=== PATIENT | male | born 1960 | race Caucasian/White ===

== ENCOUNTER → 2016-12-14 | Outpatient (CLI) | payer MEDICARE, OTHER | LOC: KOH-I 12-12 10:30 | DX: R51 Headache (principal); R42 Dizziness and giddiness; H53.8 Other visual disturbances; G93.89 Other specified disorders of brain | CPT/HCPCS: 70470; Q9962 ==

== ENCOUNTER 2020-11-11 05:19 | Observation (INO) | payer MEDICARE, OTHER ==
[~2020-11-11] VITALS: Ht 157.5 cm; Wt 54.0 kg
[~2020-11-11 05:19] MED LIST: ASPIRIN CHEWABL81 MG PO; COZAAR 25MG TAB25 MG PO; ECOTRIN81 MG PO; ELAVIL 25 MG TA25 MG PO; FUROSEMIDE20 MG PO; FUROSEMIDE40 MG PO; IPRAT-ALBUT 0.5-3 ML INH; IPRAT-ALBUT 0.5-3 ML NEB; LASIX20 MG PO; LIPITOR TAB 2020 MG PO; LIPITOR20 MG PO; LOPRESSOR 25 MG25 MG PO; METHYLPREDNISOLO4 M1 PO; PREDNISONE 50 M50 MG PO; PREDNISONE20 MG PO; TOPROL XL25 MG PO; ZITHROMAX250 MG PO
[2020-11-11 06:16] LABS: HEMOGLOBIN 16.1 gm/dl (14.0-17.5); RED BLOOD COUNT 5.31 M/UL (4.20-5.50); WHITE BLOOD COUNT 13.1 K/UL (4.5-11.0)
[2020-11-11 06:32] LABS: BUN/CREATININE RATIO 25 (0-10)
[2020-11-11] MEDS ORDERED: LISINOPRIL5 MG PO (09:51)
[2020-11-11] MEDS ORDERED: LIPITOR40 MG PO (09:51)
[2020-11-11] MEDS ORDERED: ASPIRIN EC81 MG PO (09:52)
[2020-11-11] MEDS ORDERED: LOPRESSOR 25 MG25 MG PO (09:52)
[2020-11-12 06:39] LABS: HEMOGLOBIN 14.9 gm/dl (14.0-17.5); RED BLOOD COUNT 4.97 M/UL (4.20-5.50); WHITE BLOOD COUNT 16.8 K/UL (4.5-11.0)
[2020-11-12 07:00] LABS: BUN/CREATININE RATIO 26 (0-10)
[2020-11-13 06:39] LABS: HEMOGLOBIN 16.6 gm/dl (14.0-17.5); RED BLOOD COUNT 5.46 M/UL (4.20-5.50); WHITE BLOOD COUNT 17.5 K/UL (4.5-11.0)
[2020-11-13 07:18] LABS: BUN/CREATININE RATIO 30 (0-10)
[2020-11-13] MEDS ORDERED: ASPIRIN EC81 MG PO (09:47)
[2020-11-13] MEDS ORDERED: LIPITOR40 MG PO (09:47)
[2020-11-13] MEDS ORDERED: LASIX20 MG PO (09:47)
[2020-11-13] MEDS ORDERED: LOPRESSOR 25 MG25 MG PO (09:47)
[2020-11-13] MEDS ORDERED: ALDACTONE 25MG25 MG PO (09:47)
[2020-11-13] MEDS ORDERED: LISINOPRIL5 MG PO (09:47)
== END 2020-11-13 12:30 | disposition home or self-care (01) ==
LOC: ER1 05:19 → MED SURG 4 08:46 → CDU 08:46 → MED SURG 4 08:46
PROVIDERS: Family Medicine; Physician Assistant Medical; ADMIT Internal Medicine
DX: I11.0 Hypertensive heart disease with heart failure (principal); I50.23 Acute on chronic systolic (congestive) heart failure; J96.01 Acute respiratory failure with hypoxia; I42.0 Dilated cardiomyopathy; I25.10 Atherosclerotic heart disease of native coronary artery without angina pectoris; J44.1 Chronic obstructive pulmonary disease with (acute) exacerbation; E78.5 Hyperlipidemia, unspecified; R00.0 Tachycardia, unspecified; D72.829 Elevated white blood cell count, unspecified; F17.210 Nicotine dependence, cigarettes, uncomplicated; I27.20 Pulmonary hypertension, unspecified; I25.2 Old myocardial infarction; Z86.73 Personal history of transient ischemic attack (TIA), and cerebral infarction without residual deficits; Z91.14 Patient's other noncompliance with medication regimen; Z91.19 Patient's noncompliance with other medical treatment and regimen; Z20.822 Contact with and (suspected) exposure to COVID-19; Z98.890 Other specified postprocedural states
CPT/HCPCS: ECHO; 0240U; 36415; 36600; 71045; 80048; 80053; 81001; 82550; 82553; 82803; 82962; 83605; 83735; 83874; 83880; 84100; 84439; 84443; 84484; 85025; 85027; 87040; 93005; 93306; 94640; 94664; 94760; 96365; 96372; 96375; 96376; 99285; G0378; J0696; J1650; J1940; J2930

== ENCOUNTER 2021-03-03 02:14 | Inpatient (IN) | payer MEDICARE, OTHER ==
[~2021-03-03] VITALS: Ht 160 cm; Wt 63.5 kg
[~2021-03-03 02:14] MED LIST changes: +ALDACTONE 25MG25 MG PO; +ASPIRIN EC81 MG PO; +LIPITOR40 MG PO; +LISINOPRIL5 MG PO
[2021-03-03 02:43] LABS: HEMOGLOBIN 15.5 gm/dl (14.0-17.5); RED BLOOD COUNT 5.02 M/UL (4.20-5.50); WHITE BLOOD COUNT 15.4 K/UL (4.5-11.0)
[2021-03-03 03:17] LABS: BUN/CREATININE RATIO 19 (0-10)
[2021-03-03] MEDS ORDERED: ATORVASTATIN CA40 MG PO (07:30)
[2021-03-03] MEDS ORDERED: FUROSEMIDE40 MG PO (07:31)
[2021-03-03] MEDS ORDERED: HYDROXYZINE HCL10 MG PO (07:31)
[2021-03-03] MEDS ORDERED: LISINOPRIL2.5 MG PO (07:32)
[2021-03-04 02:51] LABS: HEMOGLOBIN 14.3 gm/dl (14.0-17.5); RED BLOOD COUNT 4.67 M/UL (4.20-5.50)
[2021-03-04 02:54] LABS: WHITE BLOOD COUNT 26.1 K/UL (4.5-11.0)
[2021-03-04 03:16] LABS: BUN/CREATININE RATIO 20 (0-10)
[2021-03-05 05:26] LABS: HEMOGLOBIN 14.9 gm/dl (14.0-17.5); RED BLOOD COUNT 4.78 M/UL (4.20-5.50); WHITE BLOOD COUNT 24.8 K/UL (4.5-11.0)
[2021-03-05 05:55] LABS: BUN/CREATININE RATIO 28 (0-10)
--- NOTE | 2021-03-05 07:00 | NUR ---
PATIENT REFUSED VANCOMYCIN AND MERREM. PATIENT WAS EDUCATED ON BENEFITS AND RISKS OF HAVING ANTIBIOTIC THERAPY. PATIENT HAD STILL REFUSED TREATMENT.
[2021-03-05] MEDS ORDERED: LEVALBUTER1.25 MG/3 NEB (11:03)
[2021-03-05] MEDS ORDERED: BUDESONIDE0.5 MG/2 M NEB (11:03)
[2021-03-05] MEDS ORDERED: METOPROLOL SUCC25 MG PO (11:03)
[2021-03-05] MEDS ORDERED: LISINOPRIL5 MG PO (11:03)
[2021-03-05] MEDS ORDERED: MEDROL DOSEPAK 24 MG PO (11:03)
[2021-03-05] MEDS ORDERED: AUGMENTIN 875-1 EACH PO (11:03)
[2021-03-05] MEDS ORDERED: ATORVASTATIN CA20 MG PO (11:03)
[2021-03-05] MEDS ORDERED: FUROSEMIDE40 MG PO (11:03)
[2021-03-05] MEDS ORDERED: ALDACTONE25 MG PO (11:03)
[2021-03-05] MEDS ORDERED: PROTONIX40 MG PO (11:03)
[2021-03-05] MEDS ORDERED: SPIRIVA18 MCG INH (11:06)
[2021-03-05] MEDS ORDERED: SEREVENT DISKU50 MCG INH (11:06)
[2021-03-05] MEDS ORDERED: IPRATROPIU0.2 MG/1 M INH (11:06)
[2021-03-05 13:13] LABS: ORGANISM ID Not indicated. (.); SPECIMEN SOURCE Urine (.); STREPTOCOCCUS PNEUMONIAE AG Negative (Negative)
== END 2021-03-05 12:36 | disposition left against medical advice (07) | DRG 871 ==
LOC: ER1 02:14 → CDU 04:06 → PROG CARE 04:06
PROVIDERS: Internal Medicine; Internal Medicine Pulmonary Disease; ADMIT Internal Medicine
PROC: 5A09457 Assistance with Respiratory Ventilation, 24-96 Consecutive Hours, Continuous Positive Airway Pressure (ICD-10-PCS; principal; 2021-03-03)
DX: A41.9 Sepsis, unspecified organism (principal); J96.01 Acute respiratory failure with hypoxia; J96.02 Acute respiratory failure with hypercapnia; E43 Unspecified severe protein-calorie malnutrition; J18.9 Pneumonia, unspecified organism; I50.23 Acute on chronic systolic (congestive) heart failure; J44.1 Chronic obstructive pulmonary disease with (acute) exacerbation; I42.8 Other cardiomyopathies; J44.0 Chronic obstructive pulmonary disease with (acute) lower respiratory infection; I47.2 Ventricular tachycardia; I11.0 Hypertensive heart disease with heart failure; E78.5 Hyperlipidemia, unspecified; Z20.822 Contact with and (suspected) exposure to COVID-19; Z95.810 Presence of automatic (implantable) cardiac defibrillator; Z72.0 Tobacco use; Z91.14 Patient's other noncompliance with medication regimen; Z68.24 Body mass index [BMI] 24.0-24.9, adult
CPT/HCPCS: 36415; 36600; 71045; 80053; 80202; 82550; 82553; 82803; 83605; 83735; 83880; 84100; 84484; 85025; 85610; 86140; 87040; 87081; 87205; 87278; 87899; 93005; 94640; 94660; 94664; 94667; 94668; 94760; 96374; 96375; 97161; 99285; C9113; J0696; J1650; J1940; J2185; J2920; J3370; J7070; J7120; U0002

== ENCOUNTER 2021-05-05 05:14 | Inpatient (IN) | payer MEDICARE, OTHER ==
[~2021-05-05 05:14] MED LIST changes: +ALDACTONE25 MG PO; +ATORVASTATIN CA20 MG PO; +ATORVASTATIN CA40 MG PO; +AUGMENTIN 875-1 EACH PO; +BUDESONIDE0.5 MG/2 M NEB; +HYDROXYZINE HCL10 MG PO; +IPRATROPIU0.2 MG/1 M INH; +LEVALBUTER1.25 MG/3 NEB; +LISINOPRIL2.5 MG PO; +MEDROL DOSEPAK 24 MG PO; +METOPROLOL SUCC25 MG PO; +PROTONIX40 MG PO; +SEREVENT DISKU50 MCG INH; +SPIRIVA18 MCG INH
[2021-05-05 06:04] LABS: HEMOGLOBIN 16.5 gm/dl (14.0-17.5)
[2021-05-05 06:09] LABS: RED BLOOD COUNT 5.11 M/UL (4.20-5.50)
[2021-05-05 06:24] LABS: BUN/CREATININE RATIO 22 (0-10)
== END 2021-05-05 16:38 | disposition left against medical advice (07) | DRG 291 ==
LOC: ER1 05:14 → CDU 09:32
PROVIDERS: Family Medicine; ADMIT Internal Medicine
DX: I50.23 Acute on chronic systolic (congestive) heart failure (principal); J18.9 Pneumonia, unspecified organism; I42.8 Other cardiomyopathies; Z20.822 Contact with and (suspected) exposure to COVID-19; I42.0 Dilated cardiomyopathy; G45.9 Transient cerebral ischemic attack, unspecified; I47.1 Supraventricular tachycardia; E78.5 Hyperlipidemia, unspecified; F17.210 Nicotine dependence, cigarettes, uncomplicated; I08.1 Rheumatic disorders of both mitral and tricuspid valves; I27.20 Pulmonary hypertension, unspecified; Z91.14 Patient's other noncompliance with medication regimen; Z86.73 Personal history of transient ischemic attack (TIA), and cerebral infarction without residual deficits; Z83.6 Family history of other diseases of the respiratory system
CPT/HCPCS: 36600; 71045; 80053; 82550; 82553; 82803; 83605; 83880; 84484; 85025; 85379; 85610; 87040; 93005; 94664; 96374; 99285; J0692; J1940; U0002

== ENCOUNTER 2021-07-02 01:51 | Inpatient (IN) | payer MEDICARE, OTHER ==
[~2021-07-02] VITALS: Ht 157.5 cm; Wt 56.7 kg
[2021-07-02 02:21] LABS: HEMOGLOBIN 15.7 gm/dl (14.0-17.5); RED BLOOD COUNT 5.16 M/UL (4.20-5.50); WHITE BLOOD COUNT 12.9 K/UL (4.5-11.0)
[2021-07-02 02:48] LABS: BUN/CREATININE RATIO 21 (0-10)
[2021-07-02] MEDS ORDERED: HYDROXYZINE HCL25 MG PO (06:10)
[2021-07-03 06:48] LABS: HEMOGLOBIN 15.3 gm/dl (14.0-17.5); RED BLOOD COUNT 5.03 M/UL (4.20-5.50)
[2021-07-03 06:54] LABS: WHITE BLOOD COUNT 24.4 K/UL (4.5-11.0)
[2021-07-03 07:43] LABS: BUN/CREATININE RATIO 29 (0-10)
[2021-07-04 09:25] LABS: HEMOGLOBIN 15.1 gm/dl (14.0-17.5); RED BLOOD COUNT 4.95 M/UL (4.20-5.50); WHITE BLOOD COUNT 25.3 K/UL (4.5-11.0)
[2021-07-04 10:02] LABS: BUN/CREATININE RATIO 29 (0-10)
[2021-07-04] MEDS ORDERED: LISINOPRIL5 MG PO (16:11)
[2021-07-04] MEDS ORDERED: ASPIRIN EC81 MG PO (16:11)
[2021-07-04] MEDS ORDERED: PROTONIX 40 MG40 M1 PO (16:11)
[2021-07-04] MEDS ORDERED: ATORVASTATIN CA20 MG PO (16:11)
[2021-07-04] MEDS ORDERED: CEFUROXIME500 MG PO (16:11)
[2021-07-04] MEDS ORDERED: METOPROLOL TART25 MG PO (16:16)
== END 2021-07-04 17:16 | disposition home or self-care (01) | DRG 291 ==
LOC: ER1 01:51 → CDU 05:12 → M/S 05:12
PROVIDERS: Internal Medicine; Physician Assistant; ADMIT Internal Medicine
DX: I11.0 Hypertensive heart disease with heart failure (principal); I50.23 Acute on chronic systolic (congestive) heart failure; J96.21 Acute and chronic respiratory failure with hypoxia; Z20.822 Contact with and (suspected) exposure to COVID-19; J44.9 Chronic obstructive pulmonary disease, unspecified; I42.0 Dilated cardiomyopathy; I25.10 Atherosclerotic heart disease of native coronary artery without angina pectoris; I34.0 Nonrheumatic mitral (valve) insufficiency; F17.210 Nicotine dependence, cigarettes, uncomplicated; I27.20 Pulmonary hypertension, unspecified; E78.5 Hyperlipidemia, unspecified; Z91.14 Patient's other noncompliance with medication regimen; Z79.82 Long term (current) use of aspirin; Z79.899 Other long term (current) drug therapy; Z86.73 Personal history of transient ischemic attack (TIA), and cerebral infarction without residual deficits; Z83.6 Family history of other diseases of the respiratory system; I25.2 Old myocardial infarction; Z82.49 Family history of ischemic heart disease and other diseases of the circulatory system
CPT/HCPCS: ECHO; 36415; 71045; 71275; 80053; 82550; 82553; 83605; 83874; 83880; 84484; 85025; 85379; 85610; 85730; 87040; 93005; 93306; 94640; 94664; 94760; 96374; 99285; G0378; J0456; J0696; J1650; J1940; J2920; J2930; J7030; Q0177; Q9967; U0002

== ENCOUNTER 2021-07-07 16:15 | Observation (INO) | payer MEDICARE, OTHER ==
[~2021-07-07] VITALS: Ht 157.5 cm; Wt 51.3 kg
[~2021-07-07 16:15] MED LIST changes: +CEFUROXIME500 MG PO; +HYDROXYZINE HCL25 MG PO; +METOPROLOL TART25 MG PO; +PROTONIX 40 MG40 M1 PO
[2021-07-07 17:34] LABS: HEMOGLOBIN 16.1 gm/dl (14.0-17.5); RED BLOOD COUNT 5.55 M/UL (4.20-5.50)
[2021-07-07 17:58] LABS: BUN/CREATININE RATIO 27 (0-10)
[2021-07-07] MEDS ORDERED: LOPRESSOR 25 MG25 MG PO (21:57)
[2021-07-08 05:02] LABS: HEMOGLOBIN 15.3 gm/dl (14.0-17.5); RED BLOOD COUNT 5.27 M/UL (4.20-5.50); WHITE BLOOD COUNT 14.7 K/UL (4.5-11.0)
[2021-07-08 05:15] LABS: BUN/CREATININE RATIO 26 (0-10)
== END 2021-07-09 15:08 | disposition home or self-care (01) ==
LOC: ER1 16:15 → CDU 20:20 → PROG CARE 20:20
PROVIDERS: Nurse Practitioner; ADMIT Internal Medicine
DX: I11.0 Hypertensive heart disease with heart failure (principal); I50.22 Chronic systolic (congestive) heart failure; I42.8 Other cardiomyopathies; I95.9 Hypotension, unspecified; I34.0 Nonrheumatic mitral (valve) insufficiency; I27.20 Pulmonary hypertension, unspecified; F17.210 Nicotine dependence, cigarettes, uncomplicated; I47.1 Supraventricular tachycardia; E44.0 Moderate protein-calorie malnutrition; Z68.20 Body mass index [BMI] 20.0-20.9, adult; Z20.822 Contact with and (suspected) exposure to COVID-19; Z86.73 Personal history of transient ischemic attack (TIA), and cerebral infarction without residual deficits; Z91.19 Patient's noncompliance with other medical treatment and regimen; Z53.29 Procedure and treatment not carried out because of patient's decision for other reasons; Z88.1 Allergy status to other antibiotic agents; Z79.2 Long term (current) use of antibiotics; Z79.82 Long term (current) use of aspirin; Z79.899 Other long term (current) drug therapy
CPT/HCPCS: 36415; 71045; 80053; 80307; 81001; 82550; 82553; 82607; 82728; 83605; 83874; 83880; 84100; 84439; 84443; 84484; 84550; 85025; 85652; 86140; 87040; 93005; 94640; 94664; 94760; 99285; G0378; J1650; U0002

== ENCOUNTER 2021-07-17 09:00 | Inpatient (IN) | payer MEDICARE, OTHER ==
[~2021-07-17] VITALS: Ht 154.9 cm; Wt 54.4 kg
[2021-07-17 09:26] LABS: HEMOGLOBIN 15.5 gm/dl (14.0-17.5); RED BLOOD COUNT 5.11 M/UL (4.20-5.50); WHITE BLOOD COUNT 18.2 K/UL (4.5-11.0)
[2021-07-17 09:56] LABS: BUN/CREATININE RATIO 20 (0-10)
[2021-07-17] MEDS ORDERED: BUDESONIDE0.5 MG/2 M NEB (15:40)
[2021-07-17] MEDS ORDERED: TYLENOL EXTRA500 MG PO (15:41)
[2021-07-17] MEDS ORDERED: DAILY VALUE1 EACH PO (15:41)
[2021-07-18 03:00] LABS: WHITE BLOOD COUNT 18.3 K/UL (4.5-11.0)
[2021-07-18 03:01] LABS: HEMOGLOBIN 13.2 gm/dl (14.0-17.5); RED BLOOD COUNT 4.39 M/UL (4.20-5.50)
[2021-07-18 03:16] LABS: BUN/CREATININE RATIO 23 (0-10)
[2021-07-19 06:23] LABS: HEMOGLOBIN 13.7 gm/dl (14.0-17.5); RED BLOOD COUNT 4.57 M/UL (4.20-5.50); WHITE BLOOD COUNT 19.3 K/UL (4.5-11.0)
[2021-07-19 07:07] LABS: BUN/CREATININE RATIO 27 (0-10)
[2021-07-20 05:58] LABS: HEMOGLOBIN 12.7 gm/dl (14.0-17.5); RED BLOOD COUNT 4.28 M/UL (4.20-5.50); WHITE BLOOD COUNT 15.4 K/UL (4.5-11.0)
[2021-07-20 06:40] LABS: BUN/CREATININE RATIO 22 (0-10)
[2021-07-21 05:42] LABS: HEMOGLOBIN 13.5 gm/dl (14.0-17.5); RED BLOOD COUNT 4.47 M/UL (4.20-5.50); WHITE BLOOD COUNT 13.8 K/UL (4.5-11.0)
[2021-07-21 06:32] LABS: BUN/CREATININE RATIO 21 (0-10)
[2021-07-22 07:05] LABS: HEMOGLOBIN 12.7 gm/dl (14.0-17.5); RED BLOOD COUNT 4.21 M/UL (4.20-5.50); WHITE BLOOD COUNT 12.8 K/UL (4.5-11.0)
[2021-07-22 07:28] LABS: BUN/CREATININE RATIO 25 (0-10)
[2021-07-22] MEDS ORDERED: NICOTINE PATCH1 EAC1 TD (12:48)
[2021-07-22] MEDS ORDERED: AUGMENTIN 875-1 EACH PO (12:48)
[2021-07-22] MEDS ORDERED: LOPRESSOR 25 MG25 MG PO (12:48)
[2021-07-22] MEDS ORDERED: LIBRIUM CAP 1010 MG PO (12:48)
[2021-07-22] MEDS ORDERED: DOXYCYCLINE HY100 MG PO (12:48)
[2021-07-23] MEDS ORDERED: METOPROLOL TART25 MG PO (10:17)
[2021-07-23] MEDS ORDERED: LISINOPRIL5 MG PO (10:19)
[2021-07-23] MEDS ORDERED: ALBUTEROL2.5 MG/3 M NEB (10:20)
== END 2021-07-22 13:55 | disposition left against medical advice (07) | DRG 871 ==
LOC: ER1 09:00 → CDU 13:49 → MED SURG 4 13:49
PROVIDERS: Emergency Medicine; Internal Medicine; Physician Assistant; ADMIT Internal Medicine
PROC: 5A09457 Assistance with Respiratory Ventilation, 24-96 Consecutive Hours, Continuous Positive Airway Pressure (ICD-10-PCS; principal; 2021-07-22)
DX: A41.9 Sepsis, unspecified organism (principal); J15.6 Pneumonia due to other Gram-negative bacteria; J15.8 Pneumonia due to other specified bacteria; J96.01 Acute respiratory failure with hypoxia; I50.22 Chronic systolic (congestive) heart failure; I42.0 Dilated cardiomyopathy; Z20.822 Contact with and (suspected) exposure to COVID-19; F17.210 Nicotine dependence, cigarettes, uncomplicated; E78.5 Hyperlipidemia, unspecified; R65.20 Severe sepsis without septic shock; Y95 Nosocomial condition; I11.0 Hypertensive heart disease with heart failure; R74.01 Elevation of levels of liver transaminase levels; J43.9 Emphysema, unspecified; I25.5 Ischemic cardiomyopathy; K40.90 Unilateral inguinal hernia, without obstruction or gangrene, not specified as recurrent; Z95.810 Presence of automatic (implantable) cardiac defibrillator; Z86.73 Personal history of transient ischemic attack (TIA), and cerebral infarction without residual deficits; Z91.14 Patient's other noncompliance with medication regimen; Z88.8 Allergy status to other drugs, medicaments and biological substances; Z79.82 Long term (current) use of aspirin; Z79.899 Other long term (current) drug therapy; Z83.6 Family history of other diseases of the respiratory system
CPT/HCPCS: 36415; 36600; 71045; 71046; 80048; 80053; 80202; 82550; 82553; 82803; 83735; 83874; 83880; 84484; 85025; 85027; 87081; 87205; 93005; 94640; 94660; 94664; 94760; 96374; 96375; 99285; J0692; J1100; J1956; J3370; J7050; J7070; Q9967; U0002

== ENCOUNTER 2021-07-17 10:13 | Inpatient (IN) | payer MEDICARE, OTHER ==
[~2021-07-17] VITALS: Ht 154.9 cm; Wt 54.0 kg
[2021-07-17] MEDS ORDERED: BUDESONIDE0.5 MG/2 M NEB (15:40)
[2021-07-17] MEDS ORDERED: TYLENOL EXTRA500 MG PO (15:41)
[2021-07-17] MEDS ORDERED: DAILY VALUE1 EACH PO (15:41)
[2021-07-22] MEDS ORDERED: AUGMENTIN 875-1 EACH PO (12:48)
[2021-07-22] MEDS ORDERED: NICOTINE PATCH1 EAC1 TD (12:48)
[2021-07-22] MEDS ORDERED: LOPRESSOR 25 MG25 MG PO (12:48)
[2021-07-22] MEDS ORDERED: LIBRIUM CAP 1010 MG PO (12:48)
[2021-07-22] MEDS ORDERED: DOXYCYCLINE HY100 MG PO (12:48)
[2021-07-22 20:43] LABS: HEMOGLOBIN 14.5 gm/dl (14.0-17.5); WHITE BLOOD COUNT 15.2 K/UL (4.5-11.0)
[2021-07-22 20:45] LABS: RED BLOOD COUNT 4.71 M/UL (4.20-5.50)
[2021-07-22 21:24] LABS: BUN/CREATININE RATIO 23 (0-10)
[2021-07-23 04:53] LABS: HEMOGLOBIN 13.5 gm/dl (14.0-17.5); RED BLOOD COUNT 4.49 M/UL (4.20-5.50); WHITE BLOOD COUNT 13.2 K/UL (4.5-11.0)
[2021-07-23 05:53] LABS: BUN/CREATININE RATIO 26 (0-10)
[2021-07-23] MEDS ORDERED: METOPROLOL TART25 MG PO (10:17)
[2021-07-23] MEDS ORDERED: LISINOPRIL5 MG PO (10:19)
[2021-07-23] MEDS ORDERED: ALBUTEROL2.5 MG/3 M NEB (10:20)
[2021-07-24 06:54] LABS: HEMOGLOBIN 12.2 gm/dl (14.0-17.5); RED BLOOD COUNT 4.09 M/UL (4.20-5.50)
[2021-07-24 07:19] LABS: WHITE BLOOD COUNT 19.6 K/UL (4.5-11.0)
[2021-07-24 07:50] LABS: BUN/CREATININE RATIO 26 (0-10)
[2021-07-25 06:29] LABS: HEMOGLOBIN 12.7 gm/dl (14.0-17.5); RED BLOOD COUNT 4.17 M/UL (4.20-5.50); WHITE BLOOD COUNT 21.1 K/UL (4.5-11.0)
[2021-07-25 07:10] LABS: BUN/CREATININE RATIO 27 (0-10)
[2021-07-26 07:55] LABS: RED BLOOD COUNT 4.12 M/UL (4.20-5.50)
[2021-07-26 08:51] LABS: BUN/CREATININE RATIO 22 (0-10)
[2021-07-26] MEDS ORDERED: LISINOPRIL5 MG PO (10:07)
[2021-07-26] MEDS ORDERED: LOPRESSOR 25 MG25 MG PO (10:07)
[2021-07-26] MEDS ORDERED: SYMBICORT 16010.2 GM INH (10:07)
[2021-07-26] MEDS ORDERED: SPIRIVA HANDIH18 MCG INH (10:07)
[2021-07-26] MEDS ORDERED: MEDROL DOSEPAK 24 MG PO (10:07)
--- NOTE | 2021-07-26 12:53 | NUR ---
REPORT CALLED TO KELLI AT [facility].
== END 2021-07-26 12:53 | disposition home or self-care (01) | DRG 871 ==
LOC: ER1 10:13 → CDU 10:14 → ER1 07-22 18:12 → CDU 07-22 23:20 → MED SURG 4 07-22 23:20 → ER1 07-23 16:39 → MED SURG 4 07-23 17:20 → CDU 07-23 17:20 → MED SURG 4 07-26 12:53 → CDU 07-26 12:53
PROVIDERS: Internal Medicine; Preventive Medicine Occupational Medicine; ADMIT Internal Medicine
DX: A41.02 Sepsis due to Methicillin resistant Staphylococcus aureus (principal); J15.212 Pneumonia due to Methicillin resistant Staphylococcus aureus; J96.21 Acute and chronic respiratory failure with hypoxia; J18.9 Pneumonia, unspecified organism; I50.22 Chronic systolic (congestive) heart failure; I42.0 Dilated cardiomyopathy; Z20.822 Contact with and (suspected) exposure to COVID-19; I11.0 Hypertensive heart disease with heart failure; J43.9 Emphysema, unspecified; K40.90 Unilateral inguinal hernia, without obstruction or gangrene, not specified as recurrent; T38.0X5A Adverse effect of glucocorticoids and synthetic analogues, initial encounter; F41.9 Anxiety disorder, unspecified; F17.210 Nicotine dependence, cigarettes, uncomplicated; E78.5 Hyperlipidemia, unspecified; Z98.890 Other specified postprocedural states; Z83.6 Family history of other diseases of the respiratory system; Z91.14 Patient's other noncompliance with medication regimen; Z95.810 Presence of automatic (implantable) cardiac defibrillator; Z79.82 Long term (current) use of aspirin; Z86.73 Personal history of transient ischemic attack (TIA), and cerebral infarction without residual deficits; Z80.1 Family history of malignant neoplasm of trachea, bronchus and lung; Z88.1 Allergy status to other antibiotic agents; I25.2 Old myocardial infarction; Z99.81 Dependence on supplemental oxygen
CPT/HCPCS: 36415; 36600; 71045; 71046; 80048; 80053; 80202; 80307; 82550; 82553; 82803; 83735; 83874; 83880; 84484; 85025; 85027; 85652; 86140; 87081; 87205; 93005; 94640; 94660; 94664; 94760; 96374; 96375; 99285; J0692; J1100; J1650; J1956; J2405; J2920; J2930; J3370; J7030; J7050; J7070; Q0177; Q9967; U0002

== ENCOUNTER 2021-07-31 20:51 | Observation (INO) | payer MEDICARE, OTHER ==
[~2021-07-31] VITALS: Ht 154.9 cm; Wt 55.3 kg
[~2021-07-31 20:51] MED LIST changes: +ALBUTEROL2.5 MG/3 M NEB; +DAILY VALUE1 EACH PO; +DOXYCYCLINE HY100 MG PO; +LIBRIUM CAP 1010 MG PO; +NICOTINE PATCH1 EAC1 TD; +SPIRIVA HANDIH18 MCG INH; +SYMBICORT 16010.2 GM INH; +TYLENOL EXTRA500 MG PO
[2021-07-31 21:52] LABS: RED BLOOD COUNT 5.12 M/UL (4.20-5.50); WHITE BLOOD COUNT 24.9 K/UL (4.5-11.0)
[2021-07-31 22:06] LABS: BUN/CREATININE RATIO 19 (0-10)
[2021-07-31 22:24] LABS: HEMOGLOBIN 14.9 gm/dl (14.0-17.5)
[2021-08-01 06:25] LABS: HEMOGLOBIN 15.4 gm/dl (14.0-17.5); RED BLOOD COUNT 5.24 M/UL (4.20-5.50); WHITE BLOOD COUNT 26.3 K/UL (4.5-11.0)
[2021-08-01 06:49] LABS: BUN/CREATININE RATIO 22 (0-10)
== END 2021-08-01 15:12 | disposition home or self-care (01) ==
LOC: ER1 20:51 → M/S 22:52 → CDU 22:52 → M/S 08-01 01:43
PROVIDERS: Emergency Medicine; ADMIT Internal Medicine
DX: I25.119 Atherosclerotic heart disease of native coronary artery with unspecified angina pectoris (principal); I42.0 Dilated cardiomyopathy; J44.1 Chronic obstructive pulmonary disease with (acute) exacerbation; I27.20 Pulmonary hypertension, unspecified; I34.0 Nonrheumatic mitral (valve) insufficiency; I47.2 Ventricular tachycardia; E87.5 Hyperkalemia; I11.0 Hypertensive heart disease with heart failure; I50.23 Acute on chronic systolic (congestive) heart failure; I25.2 Old myocardial infarction; Z79.82 Long term (current) use of aspirin; F17.210 Nicotine dependence, cigarettes, uncomplicated; J96.11 Chronic respiratory failure with hypoxia; Z91.14 Patient's other noncompliance with medication regimen; R53.81 Other malaise; Z20.822 Contact with and (suspected) exposure to COVID-19; R00.0 Tachycardia, unspecified
CPT/HCPCS: 36415; 71045; 80048; 80053; 82550; 82553; 83690; 83735; 83874; 83880; 84100; 84484; 85025; 85379; 85610; 85730; 93005; 94640; 94664; G0378; J1940; U0002

== ENCOUNTER → 2021-08-10 | Outpatient (CLI) | payer MEDICARE, OTHER ==
[~2021-08-10] MED LIST changes: +ADVAIR 100-501 EACH INH; +INCRUSE ELLI62.5 MCG INH; +PERCOCET 5-3251 EACH PO
[2021-08-10 09:43] LABS: HEMOGLOBIN 14.3 gm/dl (14.0-17.5); RED BLOOD COUNT 5.12 M/UL (4.20-5.50); WHITE BLOOD COUNT 15.4 K/UL (4.5-11.0)
[2021-08-10 10:08] LABS: BUN/CREATININE RATIO 21 (0-10)
== END ==
LOC: OPSV2 08-09 12:00
PROVIDERS: Anesthesiology
DX: Z01.818 Encounter for other preprocedural examination (principal); Z20.822 Contact with and (suspected) exposure to COVID-19; I50.9 Heart failure, unspecified; J44.9 Chronic obstructive pulmonary disease, unspecified; R94.31 Abnormal electrocardiogram [ECG] [EKG]
CPT/HCPCS: 80048; 85025; 93005; U0003

== ENCOUNTER 2021-08-12 05:44 | Day surgery (SDC) | payer MEDICARE, OTHER ==
[~2021-08-12] VITALS: Ht 157.5 cm; Wt 55.3 kg
[~2021-08-12 05:44] MED LIST changes: -ADVAIR 100-501 EACH INH; -INCRUSE ELLI62.5 MCG INH; -PERCOCET 5-3251 EACH PO
[2021-08-12] MEDS ORDERED: INCRUSE ELLI62.5 MCG INH (09:32)
[2021-08-12] MEDS ORDERED: LISINOPRIL2.5 MG PO (14:55)
[2021-08-12] MEDS ORDERED: METOPROLOL TART25 MG PO (14:56)
[2021-08-12] MEDS ORDERED: ADVAIR 100-501 EACH INH (14:58)
[2021-08-13] MEDS ORDERED: PERCOCET 5-3251 EACH PO (13:49)
== END 2021-08-13 16:24 | disposition home or self-care (01) ==
LOC: OR 05:44 → M/S 05:44 → OR 11:30 → M/S 13:57 → OR 13:57
DX: K40.90 Unilateral inguinal hernia, without obstruction or gangrene, not specified as recurrent (principal); I11.0 Hypertensive heart disease with heart failure; I50.22 Chronic systolic (congestive) heart failure; J44.9 Chronic obstructive pulmonary disease, unspecified; I25.10 Atherosclerotic heart disease of native coronary artery without angina pectoris; G43.709 Chronic migraine without aura, not intractable, without status migrainosus; I42.0 Dilated cardiomyopathy; E78.5 Hyperlipidemia, unspecified; G44.89 Other headache syndrome; G47.00 Insomnia, unspecified; F41.9 Anxiety disorder, unspecified; R94.31 Abnormal electrocardiogram [ECG] [EKG]; Z20.822 Contact with and (suspected) exposure to COVID-19; Z86.73 Personal history of transient ischemic attack (TIA), and cerebral infarction without residual deficits
CPT/HCPCS: 94640; 94664; 94760; C1781; J0690; J1100; J2001; J2250; J2370; J2405; J2704; J3010; J7030; J7120

== ENCOUNTER → 2021-08-19 | Outpatient (CLI) | payer MEDICARE, OTHER, MEDICAID ==
[~2021-08-19] MED LIST changes: +ADVAIR 100-501 EACH INH; +INCRUSE ELLI62.5 MCG INH; +PERCOCET 5-3251 EACH PO
== END ==
LOC: RAD 12:20
DX: R05.9 Cough, unspecified (principal); R06.00 Dyspnea, unspecified; R91.8 Other nonspecific abnormal finding of lung field
CPT/HCPCS: 71046

== ENCOUNTER 2021-08-20 21:59 | Emergency (ER) | payer MEDICARE, OTHER ==
[2021-08-20 23:05] LABS: HEMOGLOBIN 14.4 gm/dl (14.0-17.5); RED BLOOD COUNT 4.92 M/UL (4.20-5.50); WHITE BLOOD COUNT 13.8 K/UL (4.5-11.0)
[2021-08-20 23:41] LABS: BUN/CREATININE RATIO 16 (0-10)
== END 2021-08-20 23:30 | disposition home or self-care (01) ==
LOC: ER1 21:59
PROVIDERS: Nurse Practitioner
DX: R06.02 Shortness of breath (principal); Z88.8 Allergy status to other drugs, medicaments and biological substances; I50.9 Heart failure, unspecified; J44.9 Chronic obstructive pulmonary disease, unspecified
CPT/HCPCS: 36415; 71046; 80053; 82550; 82553; 83605; 83735; 83880; 84484; 85025; 87040; 93005; 99284

== ENCOUNTER 2021-08-22 21:47 | Inpatient (IN) | payer MEDICARE, OTHER ==
[~2021-08-22] VITALS: Ht 157.5 cm; Wt 55.6 kg
[2021-08-22 22:18] LABS: HEMOGLOBIN 15.2 gm/dl (14.0-17.5)
[2021-08-22 22:20] LABS: RED BLOOD COUNT 5.53 M/UL (4.20-5.50); WHITE BLOOD COUNT 18.4 K/UL (4.5-11.0)
[2021-08-22 22:37] LABS: BUN/CREATININE RATIO 16 (0-10)
[2021-08-23] MEDS ORDERED: DOXYCYCLINE HY100 MG PO (09:46)
[2021-08-23 10:32] LABS: RED BLOOD COUNT 5.2 M/UL (4.20-5.50); WHITE BLOOD COUNT 14.7 K/UL (4.5-11.0)
[2021-08-23 10:45] LABS: BUN/CREATININE RATIO 16 (0-10)
[2021-08-24 04:06] LABS: HEMOGLOBIN 13.8 gm/dl (14.0-17.5); RED BLOOD COUNT 4.85 M/UL (4.20-5.50)
[2021-08-24 04:12] LABS: WHITE BLOOD COUNT 21.8 K/UL (4.5-11.0)
[2021-08-24 04:28] LABS: BUN/CREATININE RATIO 20 (0-10)
[2021-08-24] MEDS ORDERED: DIGOXIN125 MCG PO (10:20)
[2021-08-24] MEDS ORDERED: CARVEDILOL3.125 MG PO (10:20)
[2021-08-24] MEDS ORDERED: KLOR-CON M2020 MEQ PO (10:20)
[2021-08-24] MEDS ORDERED: FUROSEMIDE40 MG PO (10:20)
[2021-08-25 03:45] LABS: HEMOGLOBIN 15.2 gm/dl (14.0-17.5); RED BLOOD COUNT 5.3 M/UL (4.20-5.50); WHITE BLOOD COUNT 16.6 K/UL (4.5-11.0)
[2021-08-25 12:15] LABS: HGB A 97.7 % (96.4-98.8); HGB A2 2.3 % (1.8-3.2)
[2021-08-25 14:11] LABS: HEMATOCRIT 41.6 % (37.5-51.0)
[2021-08-26 17:08] LABS: ORGANISM ID Not indicated. (.); SPECIMEN SOURCE Urine (.); STREPTOCOCCUS PNEUMONIAE AG Negative (Negative)
== END 2021-08-25 14:30 | disposition home or self-care (01) | DRG 291 ==
LOC: ER1 21:47 → PROG CARE 08-23 01:45 → CDU 08-23 01:45 → PROG CARE 08-23 21:12
PROVIDERS: Internal Medicine; Registered Nurse; Student in an Organized Health Care Education/Training Program; ADMIT Internal Medicine
PROC: B24BZZZ Ultrasonography of Heart with Aorta (ICD-10-PCS; principal; 2021-08-23)
DX: I13.0 Hypertensive heart and chronic kidney disease with heart failure and stage 1 through stage 4 chronic kidney disease, or unspecified chronic kidney disease (principal); I50.23 Acute on chronic systolic (congestive) heart failure; Z20.822 Contact with and (suspected) exposure to COVID-19; J96.21 Acute and chronic respiratory failure with hypoxia; J90 Pleural effusion, not elsewhere classified; J44.1 Chronic obstructive pulmonary disease with (acute) exacerbation; I42.9 Cardiomyopathy, unspecified; I05.2 Rheumatic mitral stenosis with insufficiency; I27.20 Pulmonary hypertension, unspecified; F17.210 Nicotine dependence, cigarettes, uncomplicated; I42.0 Dilated cardiomyopathy; D75.839 Thrombocytosis, unspecified; D46.9 Myelodysplastic syndrome, unspecified; Z91.14 Patient's other noncompliance with medication regimen; Z79.01 Long term (current) use of anticoagulants; Z79.82 Long term (current) use of aspirin; Z86.73 Personal history of transient ischemic attack (TIA), and cerebral infarction without residual deficits; Z90.49 Acquired absence of other specified parts of digestive tract; Z82.5 Family history of asthma and other chronic lower respiratory diseases; I25.2 Old myocardial infarction; Z71.6 Tobacco abuse counseling
CPT/HCPCS: ECHO; 36415; 36600; 71045; 80048; 80053; 81001; 81206; 81207; 81219; 81270; 82550; 82553; 82607; 82728; 82747; 82803; 83020; 83540; 83550; 83605; 83735; 83874; 83880; 83921; 84100; 84484; 85007; 85025; 85027; 86140; 87040; 87086; 87278; 87899; 93005; 93306; 94640; 94664; 94760; 96374; 96375; 99285; J0696; J1100; J1650; J1940; J2185; J3475; Q0177; Q9967; U0002

== ENCOUNTER 2021-09-15 20:39 | Emergency (ER) | payer MEDICARE, OTHER ==
[~2021-09-15 20:39] MED LIST changes: +CARVEDILOL3.125 MG PO; +DIGOXIN125 MCG PO; +KLOR-CON M2020 MEQ PO
[2021-09-15 21:16] LABS: HEMOGLOBIN 16.8 gm/dl (14.0-17.5); RED BLOOD COUNT 5.82 M/UL (4.20-5.50); WHITE BLOOD COUNT 10.2 K/UL (4.5-11.0)
[2021-09-15 22:32] LABS: BORDETELLA PARAPERTUSSIS Not Detected (Not Detectd); BORDETELLA PERTUSSIS Not Detected (Not Detectd); CHLAMYDIA PNEUMONIAE Not Detected (Not Detectd); CORONAVIRUS HKU1 Not Detected (Not Detectd); CORONAVIRUS NL63 Not Detected (Not Detectd); CORONAVIRUS OC43 Not Detected (Not Detectd); CORONOAVIRUS 229E Not Detected (Not Detectd); HUMAN RHINOVIRUS/ENTEROVIRUS Not Detected (Not Detectd); INFLUENZA A Not Detected (Not Detectd); INFLUENZA B Not Detected (Not Detectd); MYCOPLASMA PNEUMONIAE Not Detected (Not Detectd); PARAINFLUENZA VIRUS 1 Not Detected (Not Detectd); PARAINFLUENZA VIRUS 2 Not Detected (Not Detectd); PARAINFLUENZA VIRUS 3 Not Detected (Not Detectd); PARAINFLUENZA VIRUS 4 Not Detected (Not Detectd); RESPIRATORY SYNCYTIAL VIRUS Not Detected (Not Detectd)
[2021-09-15 23:38] LABS: HUMAN METAPNEUMOVIRUS DETECTED (Not Detectd); SARS-CoV-2 NOT DETECTED (Not Detectd)
[2021-09-15] MEDS ORDERED: PREDNISONE 50 M50 MG PO (23:44)
[2021-09-17] MEDS ORDERED: DELSYM30 MG/5 ML PO (15:23)
[2021-09-17] MEDS ORDERED: DOXYCYCLINE HY100 M2 PO (15:39)
== END 2021-09-16 00:23 | disposition home or self-care (01) ==
LOC: ER1 20:39
PROVIDERS: Emergency Medicine; Physician Assistant
DX: J44.9 Chronic obstructive pulmonary disease, unspecified (principal); I11.0 Hypertensive heart disease with heart failure; I50.9 Heart failure, unspecified; F17.200 Nicotine dependence, unspecified, uncomplicated; E78.5 Hyperlipidemia, unspecified; Z88.1 Allergy status to other antibiotic agents; Z20.822 Contact with and (suspected) exposure to COVID-19
CPT/HCPCS: 71045; 80053; 82550; 82553; 83874; 83880; 84484; 85025; 87633; 93005; 94060; 94640; 94664; 94729; 94760; 96374; 99285; J2930

== ENCOUNTER → 2021-09-16 | Outpatient (CLI) | payer MEDICARE, OTHER, MEDICAID ==
[~2021-09-16] MED LIST changes: +DELSYM30 MG/5 ML PO; +DOXYCYCLINE HY100 M2 PO
== END ==
LOC: HEART 5 11:19
DX: J44.9 Chronic obstructive pulmonary disease, unspecified (principal); R90.89 Other abnormal findings on diagnostic imaging of central nervous system; K21.9 Gastro-esophageal reflux disease without esophagitis; N17.9 Acute kidney failure, unspecified; F41.9 Anxiety disorder, unspecified; I10 Essential (primary) hypertension; I42.9 Cardiomyopathy, unspecified; G43.709 Chronic migraine without aura, not intractable, without status migrainosus; G44.89 Other headache syndrome
CPT/HCPCS: 94060; 94729

== ENCOUNTER 2021-09-17 10:22 | Emergency (ER) | payer MEDICARE, OTHER ==
[~2021-09-17 10:22] MED LIST changes: -DELSYM30 MG/5 ML PO; -DOXYCYCLINE HY100 M2 PO
[2021-09-17 11:14] LABS: HEMOGLOBIN 16.5 gm/dl (14.0-17.5); RED BLOOD COUNT 5.78 M/UL (4.20-5.50)
[2021-09-17 11:17] LABS: WHITE BLOOD COUNT 17.2 K/UL (4.5-11.0)
[2021-09-17 11:38] LABS: BUN/CREATININE RATIO 30 (0-10)
[2021-09-17] MEDS ORDERED: DELSYM30 MG/5 ML PO (15:23)
[2021-09-17] MEDS ORDERED: DOXYCYCLINE HY100 M2 PO (15:39)
[2021-09-18] MEDS ORDERED: PREDNISONE20 MG PO (02:54)
[2021-09-18] MEDS ORDERED: IPRAT-ALBUT 0.5-3 ML INH (02:54)
[2021-09-18] MEDS ORDERED: DOXYCYCLINE HY100 MG PO (02:54)
== END 2021-09-17 16:30 | disposition home or self-care (01) ==
LOC: ER1 10:22
PROVIDERS: Physician Assistant Medical
DX: J44.1 Chronic obstructive pulmonary disease with (acute) exacerbation (principal); I50.9 Heart failure, unspecified; I11.0 Hypertensive heart disease with heart failure; F17.200 Nicotine dependence, unspecified, uncomplicated; Z20.822 Contact with and (suspected) exposure to COVID-19
CPT/HCPCS: 0240U; 36600; 71045; 80053; 82550; 82553; 82803; 83605; 83874; 83880; 84484; 85025; 87040; 93005; 94640; 94664; 96374; 99285; J2405

== ENCOUNTER 2021-09-17 21:39 | Emergency (ER) | payer MEDICARE, OTHER ==
[~2021-09-17 21:39] MED LIST changes: +DELSYM30 MG/5 ML PO; +DOXYCYCLINE HY100 M2 PO
[2021-09-18] MEDS ORDERED: PREDNISONE20 MG PO (02:54)
[2021-09-18] MEDS ORDERED: IPRAT-ALBUT 0.5-3 ML INH (02:54)
[2021-09-18] MEDS ORDERED: DOXYCYCLINE HY100 MG PO (02:54)
== END 2021-09-18 03:23 | disposition home or self-care (01) ==
LOC: ER1 21:39
DX: J44.0 Chronic obstructive pulmonary disease with (acute) lower respiratory infection (principal); J44.1 Chronic obstructive pulmonary disease with (acute) exacerbation; J20.9 Acute bronchitis, unspecified; R06.02 Shortness of breath; I10 Essential (primary) hypertension; F17.200 Nicotine dependence, unspecified, uncomplicated; Z99.81 Dependence on supplemental oxygen; Z88.8 Allergy status to other drugs, medicaments and biological substances
CPT/HCPCS: 82550; 82553; 83874; 84484; 93005; 94664; 96374; 99285; J2930

== ENCOUNTER 2021-09-27 17:18 | Emergency (ER) | payer MEDICARE, OTHER ==
[2021-09-27 18:18] LABS: HEMOGLOBIN 17.9 gm/dl (14.0-17.5); RED BLOOD COUNT 6.26 M/UL (4.20-5.50)
[2021-09-27 18:46] LABS: BUN/CREATININE RATIO 25 (0-10)
[2021-09-27] MEDS ORDERED: PREDNISONE 10 M10 MG PO (23:05)
[2021-09-27] MEDS ORDERED: PROVENTIL HFA6.7 GM INH (23:05)
== END 2021-09-28 02:16 | disposition home or self-care (01) ==
LOC: ER1 17:18
PROVIDERS: Physician Assistant
DX: J44.1 Chronic obstructive pulmonary disease with (acute) exacerbation (principal); I11.0 Hypertensive heart disease with heart failure; I50.9 Heart failure, unspecified; D72.829 Elevated white blood cell count, unspecified; G24.5 Blepharospasm; Z79.82 Long term (current) use of aspirin; Z20.822 Contact with and (suspected) exposure to COVID-19
CPT/HCPCS: 70450; 71045; 80053; 80162; 82550; 82553; 83874; 84484; 85025; 93005; 94640; 94664; 96374; 96375; 99284; J1200; J2270; J2930; Q9967; U0002

== ENCOUNTER 2021-10-06 12:08 | Emergency (ER) | payer MEDICARE, OTHER ==
[~2021-10-06 12:08] MED LIST changes: +PREDNISONE 10 M10 MG PO; +PROVENTIL HFA6.7 GM INH
[2021-10-06 12:47] LABS: HEMOGLOBIN 16.2 gm/dl (14.0-17.5); RED BLOOD COUNT 5.68 M/UL (4.20-5.50); WHITE BLOOD COUNT 14.5 K/UL (4.5-11.0)
[2021-10-06 13:10] LABS: BUN/CREATININE RATIO 23 (0-10)
[2021-10-06] MEDS ORDERED: MORGIDOX100 MG PO (14:29)
[2021-10-06] MEDS ORDERED: PREDNISONE20 MG PO (14:30)
== END 2021-10-06 14:47 | disposition home or self-care (01) ==
LOC: ER1 12:08
PROVIDERS: Emergency Medicine
DX: J44.1 Chronic obstructive pulmonary disease with (acute) exacerbation (principal); Z20.822 Contact with and (suspected) exposure to COVID-19; I50.9 Heart failure, unspecified; F17.200 Nicotine dependence, unspecified, uncomplicated
CPT/HCPCS: 0240U; 36600; 71045; 80048; 82550; 82553; 82803; 83605; 83874; 83880; 84484; 85025; 87040; 93005; 96374; 96375; 99285; J1100; J1940

== ENCOUNTER → 2021-10-22 | Outpatient (CLI) | payer MEDICARE, OTHER ==
[~2021-10-22] MED LIST changes: +MORGIDOX100 MG PO
== END ==
LOC: KOH-I 09:44
DX: M54.59 Other low back pain (principal); J44.9 Chronic obstructive pulmonary disease, unspecified; I50.9 Heart failure, unspecified; R09.02 Hypoxemia; M47.814 Spondylosis without myelopathy or radiculopathy, thoracic region; M47.816 Spondylosis without myelopathy or radiculopathy, lumbar region; Z73.9 Problem related to life management difficulty, unspecified; Z99.81 Dependence on supplemental oxygen
CPT/HCPCS: 72070; 72100

== ENCOUNTER → 2021-11-24 | Outpatient (CLI) | payer MEDICARE, OTHER ==
[~2021-11-24] MED LIST changes: +BUSPAR 10MG10 MG PO; +CLINDAMYCIN HC300 MG PO; +COREG6.25 MG PO; +DESYREL 50 MG T50 MG PO; +HYDROCODON-ACE1 EAC4 PO; +LEVOFLOXACIN500 MG PO; +PROAIR HFA8.5 GM INH
[2021-11-24 12:36] LABS: HEMOGLOBIN 16.2 gm/dl (14.0-17.5); RED BLOOD COUNT 5.91 M/UL (4.20-5.50); WHITE BLOOD COUNT 13.1 K/UL (4.5-11.0)
[2021-11-24 12:54] LABS: BUN/CREATININE RATIO 12 (0-10)
== END ==
LOC: LAB 12:04
PROVIDERS: Internal Medicine Cardiovascular Disease
DX: I11.0 Hypertensive heart disease with heart failure (principal); I50.22 Chronic systolic (congestive) heart failure; I42.0 Dilated cardiomyopathy; I47.2 Ventricular tachycardia
CPT/HCPCS: 36415; 71046; 80048; 85025

== ENCOUNTER 2021-11-26 07:10 | Outpatient (CLI) | payer MEDICARE, OTHER ==
[~2021-11-26] VITALS: Ht 157.5 cm; Wt 61.2 kg
[~2021-11-26 07:10] MED LIST changes: -CLINDAMYCIN HC300 MG PO; -HYDROCODON-ACE1 EAC4 PO; -LEVOFLOXACIN500 MG PO
[2021-11-26] MEDS ORDERED: LISINOPRIL2.5 MG PO (07:43)
[2021-11-26] MEDS ORDERED: HYDROCODON-ACE1 EAC4 PO (09:30)
[2021-11-26] MEDS ORDERED: CLINDAMYCIN HC300 MG PO (09:30)
[2021-11-26] MEDS ORDERED: LEVOFLOXACIN500 MG PO (09:30)
[2021-11-28] MEDS ORDERED: PREDNISONE20 MG PO (00:56)
== END 2021-11-27 11:15 | disposition home or self-care (01) ==
LOC: CATH 07:10 → MED SURG 4 10:58 → CATH 11-27 11:15
DX: I42.0 Dilated cardiomyopathy (principal); I11.0 Hypertensive heart disease with heart failure; I50.22 Chronic systolic (congestive) heart failure; I25.10 Atherosclerotic heart disease of native coronary artery without angina pectoris; R00.0 Tachycardia, unspecified; E78.5 Hyperlipidemia, unspecified; J44.9 Chronic obstructive pulmonary disease, unspecified; F17.210 Nicotine dependence, cigarettes, uncomplicated; Z79.82 Long term (current) use of aspirin; Z79.899 Other long term (current) drug therapy; Z20.822 Contact with and (suspected) exposure to COVID-19
CPT/HCPCS: 33249; 71045; 94664; 94760; 99152; 99153; C1721; C1777; C1898; J1200; J1644; J2250; J2270; J3010; J3370; J7040; J7050; J7070; Q9965

== ENCOUNTER 2021-11-27 21:23 | Emergency (ER) | payer MEDICARE, OTHER ==
[~2021-11-27 21:23] MED LIST changes: +CLINDAMYCIN HC300 MG PO; +HYDROCODON-ACE1 EAC4 PO; +LEVOFLOXACIN500 MG PO
[2021-11-27 23:47] LABS: HEMOGLOBIN 16.8 gm/dl (14.0-17.5); RED BLOOD COUNT 6.1 M/UL (4.20-5.50); WHITE BLOOD COUNT 18.6 K/UL (4.5-11.0)
[2021-11-28 00:24] LABS: BUN/CREATININE RATIO 17 (0-10)
[2021-11-28] MEDS ORDERED: PREDNISONE20 MG PO (00:56)
== END 2021-11-28 01:10 | disposition home or self-care (01) ==
LOC: ER1 21:23
PROVIDERS: Family Medicine
DX: J44.1 Chronic obstructive pulmonary disease with (acute) exacerbation (principal); I11.0 Hypertensive heart disease with heart failure; I50.22 Chronic systolic (congestive) heart failure; J96.11 Chronic respiratory failure with hypoxia; F17.200 Nicotine dependence, unspecified, uncomplicated; I42.8 Other cardiomyopathies; Z88.1 Allergy status to other antibiotic agents; Z99.81 Dependence on supplemental oxygen; Z95.810 Presence of automatic (implantable) cardiac defibrillator
CPT/HCPCS: 36600; 71045; 80053; 82550; 82553; 82803; 83605; 83880; 84484; 85025; 93005; 94664; 96374; 99285; J2930

== ENCOUNTER 2021-12-06 05:39 | Inpatient (IN) | payer MEDICARE, OTHER ==
[~2021-12-06] VITALS: Ht 154.9 cm; Wt 60.3 kg
[2021-12-06 05:55] LABS: HEMOGLOBIN 16.8 gm/dl (14.0-17.5); RED BLOOD COUNT 6.13 M/UL (4.20-5.50)
[2021-12-06 06:08] LABS: WHITE BLOOD COUNT 31.2 K/UL (4.5-11.0)
[2021-12-06 06:16] LABS: BUN/CREATININE RATIO 34 (0-10)
[2021-12-06] MEDS ORDERED: COREG 3.125M3.125 MG PO (10:25)
[2021-12-06] MEDS ORDERED: ESCITALOPRAM OXA5 MG PO (10:26)
[2021-12-06] MEDS ORDERED: VALIUM 5 MG TAB5 MG PO (10:26)
[2021-12-07 03:38] LABS: HEMOGLOBIN 15.9 gm/dl (14.0-17.5); RED BLOOD COUNT 5.96 M/UL (4.20-5.50)
[2021-12-07 04:02] LABS: BUN/CREATININE RATIO 32 (0-10)
[2021-12-08 03:17] LABS: HEMOGLOBIN 15.3 gm/dl (14.0-17.5); RED BLOOD COUNT 5.78 M/UL (4.20-5.50)
[2021-12-08 03:20] LABS: WHITE BLOOD COUNT 31.3 K/UL (4.5-11.0)
[2021-12-08 03:38] LABS: BUN/CREATININE RATIO 34 (0-10)
[2021-12-08] MEDS ORDERED: MEDROL4 MG PO (09:05)
[2021-12-08] MEDS ORDERED: LEVOFLOXACIN500 MG PO (09:05)
--- NOTE | 2021-12-08 13:31 | NUR ---
CALLED REPORT TO [facility] RN
[2021-12-08 16:12] LABS: ORGANISM ID Not indicated. (.); SPECIMEN SOURCE Urine (.); STREPTOCOCCUS PNEUMONIAE AG Negative (Negative)
[2021-12-10] MEDS ORDERED: IPRAT-ALBUT 0.5-3 ML INH (12:38)
[2021-12-10] MEDS ORDERED: OMNICEF 300 MG300 MG PO (12:38)
== END 2021-12-08 12:29 | disposition home health service (06) | DRG 193 ==
LOC: ER1 05:39 → M/S 07:12 → CDU 07:12 → M/S 08:10
PROVIDERS: Family Medicine; Internal Medicine; ADMIT Internal Medicine
DX: J18.9 Pneumonia, unspecified organism (principal); J96.21 Acute and chronic respiratory failure with hypoxia; J44.1 Chronic obstructive pulmonary disease with (acute) exacerbation; E87.1 Hypo-osmolality and hyponatremia; I50.22 Chronic systolic (congestive) heart failure; J96.12 Chronic respiratory failure with hypercapnia; J44.0 Chronic obstructive pulmonary disease with (acute) lower respiratory infection; I11.0 Hypertensive heart disease with heart failure; I27.20 Pulmonary hypertension, unspecified; I25.10 Atherosclerotic heart disease of native coronary artery without angina pectoris; D47.3 Essential (hemorrhagic) thrombocythemia; F17.210 Nicotine dependence, cigarettes, uncomplicated; I34.0 Nonrheumatic mitral (valve) insufficiency; F41.9 Anxiety disorder, unspecified; E78.5 Hyperlipidemia, unspecified; Z99.81 Dependence on supplemental oxygen; Z91.14 Patient's other noncompliance with medication regimen; Z95.810 Presence of automatic (implantable) cardiac defibrillator; Z86.73 Personal history of transient ischemic attack (TIA), and cerebral infarction without residual deficits; Z95.5 Presence of coronary angioplasty implant and graft; Z98.890 Other specified postprocedural states; Z83.6 Family history of other diseases of the respiratory system; I25.2 Old myocardial infarction; Z88.0 Allergy status to penicillin
CPT/HCPCS: 0240U; 36415; 36600; 71045; 71046; 80048; 82550; 82553; 82803; 83605; 83735; 83880; 84484; 85025; 85027; 86140; 87070; 87205; 87278; 87899; 93005; 94640; 94660; 94664; 94760; 96372; 96374; 96375; 99285; J0696; J1650; J1940; J2920; J2930; J3475

== ENCOUNTER 2022-01-14 14:50 | Inpatient (IN) | payer MEDICARE, OTHER ==
[~2022-01-14] VITALS: Ht 157.5 cm; Wt 64.0 kg
[~2022-01-14 14:50] MED LIST changes: +COREG 3.125M3.125 MG PO; +ESCITALOPRAM OXA5 MG PO; +MEDROL4 MG PO; +OMNICEF 300 MG300 MG PO; +VALIUM 5 MG TAB5 MG PO
[2022-01-14 15:27] LABS: RED BLOOD COUNT 6.05 M/UL (4.20-5.50)
[2022-01-14 15:59] LABS: BUN/CREATININE RATIO 27 (0-10)
[2022-01-14 16:46] LABS: WHITE BLOOD COUNT 38.6 K/UL (4.5-11.0)
[2022-01-14] MEDS ORDERED: PROVENTIL HFA6.7 GM INH (20:18)
[2022-01-14] MEDS ORDERED: SYMBICORT 16010.2 GM INH (20:19)
[2022-01-15 02:37] LABS: RED BLOOD COUNT 5.84 M/UL (4.20-5.50)
[2022-01-15 02:41] LABS: WHITE BLOOD COUNT 27.7 K/UL (4.5-11.0)
[2022-01-15 03:04] LABS: BUN/CREATININE RATIO 26 (0-10)
[2022-01-15] MEDS ORDERED: FUROSEMIDE40 MG PO (16:08)
[2022-01-15] MEDS ORDERED: PREDNISONE20 MG PO (16:09)
[2022-01-15] MEDS ORDERED: PROTONIX40 MG PO (16:10)
[2022-01-16 02:07] LABS: HEMOGLOBIN 14.5 gm/dl (14.0-17.5); RED BLOOD COUNT 5.59 M/UL (4.20-5.50)
[2022-01-16 02:13] LABS: WHITE BLOOD COUNT 33.6 K/UL (4.5-11.0)
[2022-01-16 02:25] LABS: BUN/CREATININE RATIO 31 (0-10)
[2022-01-17 03:02] LABS: HEMOGLOBIN 14.4 gm/dl (14.0-17.5); RED BLOOD COUNT 5.57 M/UL (4.20-5.50)
[2022-01-17 03:10] LABS: WHITE BLOOD COUNT 31.6 K/UL (4.5-11.0)
[2022-01-17] MEDS ORDERED: CEFUROXIME500 MG PO (10:00)
[2022-01-17] MEDS ORDERED: NICOTINE PATCH1 EAC2 TD ×2 (10:00→11:45)
[2022-01-17] MEDS ORDERED: SPIRIVA RESPIMAT4 GM INH (10:59)
[2022-01-17] MEDS ORDERED: VARENICLINE TA0.5 MG PO (11:26)
== END 2022-01-17 12:00 | disposition home or self-care (01) | DRG 871 ==
LOC: ER1 14:50 → PROG CARE 17:45 → CDU 17:45 → PROG CARE 19:49
PROVIDERS: Emergency Medicine; Internal Medicine; ADMIT Internal Medicine
DX: A41.9 Sepsis, unspecified organism (principal); J18.9 Pneumonia, unspecified organism; J96.21 Acute and chronic respiratory failure with hypoxia; N39.0 Urinary tract infection, site not specified; Z20.822 Contact with and (suspected) exposure to COVID-19; I50.22 Chronic systolic (congestive) heart failure; E87.1 Hypo-osmolality and hyponatremia; I42.0 Dilated cardiomyopathy; E87.2 Acidosis; R65.20 Severe sepsis without septic shock; B96.20 Unspecified Escherichia coli [E. coli] as the cause of diseases classified elsewhere; I34.0 Nonrheumatic mitral (valve) insufficiency; I27.20 Pulmonary hypertension, unspecified; R73.9 Hyperglycemia, unspecified; T38.0X5A Adverse effect of glucocorticoids and synthetic analogues, initial encounter; D72.829 Elevated white blood cell count, unspecified; J43.9 Emphysema, unspecified; I11.0 Hypertensive heart disease with heart failure; E78.5 Hyperlipidemia, unspecified; I25.10 Atherosclerotic heart disease of native coronary artery without angina pectoris; Z86.73 Personal history of transient ischemic attack (TIA), and cerebral infarction without residual deficits; Z79.01 Long term (current) use of anticoagulants; Z79.82 Long term (current) use of aspirin; Z99.81 Dependence on supplemental oxygen; Z95.810 Presence of automatic (implantable) cardiac defibrillator; Z90.49 Acquired absence of other specified parts of digestive tract; Z88.1 Allergy status to other antibiotic agents
CPT/HCPCS: 0240U; 36415; 36600; 71045; 71046; 80053; 81001; 82550; 82553; 82803; 82962; 83036; 83605; 83690; 83735; 83880; 84100; 84439; 84443; 84484; 85025; 85379; 85610; 85730; 87040; 87070; 87077; 87081; 87086; 87186; 87205; 87278; 94640; 94664; 94760; 96374; 96375; 96376; 99285; J0696; J1650; J1940; J2543; J2920; J2930; J3475; Q9967

== ENCOUNTER 2022-02-06 13:24 | Emergency (ER) | payer MEDICARE, OTHER, MEDICAID ==
[~2022-02-06 13:24] MED LIST changes: +NICOTINE PATCH1 EAC2 TD; +SPIRIVA RESPIMAT4 GM INH; +VARENICLINE TA0.5 MG PO
[2022-02-06 14:04] LABS: HEMOGLOBIN 16.7 gm/dl (14.0-17.5); RED BLOOD COUNT 6.26 M/UL (4.20-5.50); WHITE BLOOD COUNT 23.9 K/UL (4.5-11.0)
[2022-02-06 14:27] LABS: BUN/CREATININE RATIO 20 (0-10)
[2022-02-06] MEDS ORDERED: OMNICEF 300 MG300 MG PO (18:00)
== END 2022-02-06 18:30 | disposition home or self-care (01) ==
LOC: ER1 13:24
PROVIDERS: Student in an Organized Health Care Education/Training Program
DX: J44.1 Chronic obstructive pulmonary disease with (acute) exacerbation (principal); I10 Essential (primary) hypertension; F17.210 Nicotine dependence, cigarettes, uncomplicated
CPT/HCPCS: 36600; 71045; 80053; 82550; 82553; 82803; 83880; 84484; 85025; 93005; 94664; 96374; 96375; 99285; J0696; J1100; Q9967

== ENCOUNTER → 2022-03-01 | Outpatient (CLI) | payer MEDICARE, OTHER | LOC: KOH-I 13:52 | DX: J44.1 Chronic obstructive pulmonary disease with (acute) exacerbation (principal); K59.00 Constipation, unspecified | CPT/HCPCS: 74018 ==

== ENCOUNTER 2022-03-20 12:48 | Emergency (ER) | payer MEDICARE, OTHER ==
[~2022-03-20 12:48] MED LIST changes: -COREG 3.125M3.125 MG PO; +COREG3.125 MG PO
== END 2022-03-20 15:42 | disposition left against medical advice (07) ==
LOC: ER1 12:48
DX: S46.912A Strain of unspecified muscle, fascia and tendon at shoulder and upper arm level, left arm, initial encounter (principal); S43.402A Unspecified sprain of left shoulder joint, initial encounter; R06.2 Wheezing; I11.9 Hypertensive heart disease without heart failure; E78.5 Hyperlipidemia, unspecified; J44.9 Chronic obstructive pulmonary disease, unspecified; Z88.1 Allergy status to other antibiotic agents; F17.210 Nicotine dependence, cigarettes, uncomplicated; W01.10XA Fall on same level from slipping, tripping and stumbling with subsequent striking against unspecified object, initial encounter
CPT/HCPCS: 71046; 73030; 94640; 94664; 99283

== ENCOUNTER 2022-03-21 21:48 | Inpatient (IN) | payer MEDICARE, OTHER ==
[~2022-03-21] VITALS: Ht 154.9 cm; Wt 63.5 kg
[2022-03-21 22:46] LABS: HEMOGLOBIN 16.5 gm/dl (14.0-17.5); RED BLOOD COUNT 6.29 M/UL (4.20-5.50); WHITE BLOOD COUNT 21.1 K/UL (4.5-11.0)
--- NOTE | 2022-03-22 05:51 | NUR ---
PATIENT REFUSED AN IN AND OUT CATH AND STATED "I'M NOT HAVING THAT, I WILL PEE ON MY OWN."
[2022-03-22 06:40] LABS: HEMOGLOBIN 16.5 gm/dl (14.0-17.5); RED BLOOD COUNT 6.3 M/UL (4.20-5.50)
[2022-03-22 06:47] LABS: WHITE BLOOD COUNT 15.8 K/UL (4.5-11.0)
[2022-03-22] MEDS ORDERED: METFORMIN HCL500 MG PO (13:05)
[2022-03-22] MEDS ORDERED: DOCUSATE SODIU100 MG PO (13:05)
--- NOTE | 2022-03-22 14:39 | NUR ---
PT CAME TO THE NURSES STATION HE SAID HE HAD SOMETHING COME UP IMPORTANT AT HOME AND HE WOULD BE LEAVING. I REMINDED HIM OF HIS ISSUES THAT BROUGHT HIM TO THE HOSPITAL. HE WAS INSISTANT THAT HE COULD NOT STAY AND REFUSED TO SHARE THE CIRCUMSTANCES. DR RICH AWARE AND ROBETR THE TRANSMISSION MAINTENANCE SUPERVISOR AWARE. IV X 2 REMOVED AND TELE. PT AMBULATED OFF THE UNIT WITH HIS PORTABLE OXYGEN SAID "GOD BLESS YOU" AND HE MET HIS FRIEND . HE DECLINED A WHEELCHAIR
--- NOTE | 2022-03-22 14:42 | NUR ---
[employer]ERS SIGNED AND PT EDUCATED
== END 2022-03-22 14:41 | disposition left against medical advice (07) | DRG 683 ==
LOC: ER1 21:48 → CDU 23:40 → MED SURG 4 23:40
PROVIDERS: Family Medicine; ADMIT Internal Medicine
DX: N17.9 Acute kidney failure, unspecified (principal); E87.1 Hypo-osmolality and hyponatremia; I42.0 Dilated cardiomyopathy; I50.22 Chronic systolic (congestive) heart failure; J44.1 Chronic obstructive pulmonary disease with (acute) exacerbation; Z20.822 Contact with and (suspected) exposure to COVID-19; I27.20 Pulmonary hypertension, unspecified; D72.829 Elevated white blood cell count, unspecified; I25.10 Atherosclerotic heart disease of native coronary artery without angina pectoris; E11.9 Type 2 diabetes mellitus without complications; E78.5 Hyperlipidemia, unspecified; I11.0 Hypertensive heart disease with heart failure; N20.0 Calculus of kidney; I08.1 Rheumatic disorders of both mitral and tricuspid valves; R07.89 Other chest pain; G89.29 Other chronic pain; F17.210 Nicotine dependence, cigarettes, uncomplicated; Z86.73 Personal history of transient ischemic attack (TIA), and cerebral infarction without residual deficits; Z91.14 Patient's other noncompliance with medication regimen; Z99.81 Dependence on supplemental oxygen; Z95.810 Presence of automatic (implantable) cardiac defibrillator; Z98.890 Other specified postprocedural states; Z82.5 Family history of asthma and other chronic lower respiratory diseases; I25.2 Old myocardial infarction
CPT/HCPCS: 36415; 36600; 71045; 80048; 80053; 81001; 82550; 82553; 82803; 83605; 83880; 84484; 85025; 93005; 94640; 94664; 99285; G0378; J1644

== ENCOUNTER 2022-03-31 09:32 | Observation (INO) | payer MEDICARE, OTHER ==
[~2022-03-31] VITALS: Ht 154.9 cm; Wt 67.1 kg
[~2022-03-31 09:32] MED LIST changes: +DOCUSATE SODIU100 MG PO; +ESCITALOPRAM OX10 MG PO; -ESCITALOPRAM OXA5 MG PO; +METFORMIN HCL500 MG PO
[2022-03-31 10:26] LABS: HEMOGLOBIN 15.7 gm/dl (14.0-17.5); RED BLOOD COUNT 6.02 M/UL (4.20-5.50)
[2022-03-31 10:58] LABS: BUN/CREATININE RATIO 12 (0-10)
[2022-03-31] MEDS ORDERED: ASPIRIN EC81 MG PO (14:26)
[2022-03-31] MEDS ORDERED: ATORVASTATIN CA20 MG PO (14:27)
[2022-03-31] MEDS ORDERED: POTASSIUM CHLO10 ME2 PO (14:27)
[2022-03-31] MEDS ORDERED: LISINOPRIL2.5 MG PO (14:28)
[2022-03-31] MEDS ORDERED: SPIRIVA RESPIMAT INH (14:29)
[2022-03-31] MEDS ORDERED: IPRAT-ALBUT 0.5-3 ML INH (14:51)
--- NOTE | 2022-03-31 18:00 | NUR ---
pt arrived to the unit. immediately asking to leave the floor said he needed to meet his daughter in front to get his research & insights executive and zakiya pants. i offered to get the things for him he declined said he needed to talk to her too. i explained this was a non smoking facility and that he had telemetry on and was here for chest pain that he really needed to stay on the unit. pt left room carrying his oxygen portable tank and removed his tele it is cole on his bed. dr torrez aware and she came to room to see the pt.
--- NOTE | 2022-03-31 18:25 | NUR ---
pt still not on the unit. dr torrez aware.
[2022-04-01 01:12] LABS: HEMOGLOBIN 15.3 gm/dl (14.0-17.5); RED BLOOD COUNT 5.91 M/UL (4.20-5.50); WHITE BLOOD COUNT 18.7 K/UL (4.5-11.0)
--- NOTE | 2022-04-01 16:15 | NUR ---
1330 - SPOKE WITH YANI WITH [employer] RE:PACER INTERROGATION. INFO SUBMITTED AND REPORT WILL BE FAXED TO ER. 1400 - BAYRNO WITH [employer] CALLED WITH RESULTS OF REPORT. NO ABNORMALITIES NOTED WITH AICD. SOME FLUID OVERLOAD NOTED. COPY FAXED TO [facility] [address] WILLIAMSON NOTIFIED.
[2022-04-01] MEDS ORDERED: FUROSEMIDE20 MG PO (16:20)
[2022-04-01] MEDS ORDERED: MUPIROCIN22 GM TOP (16:20)
[2022-04-01] MEDS ORDERED: LISINOPRIL2.5 MG PO (16:20)
[2022-04-01] MEDS ORDERED: FLOMAX 0.4 MG0.4 MG PO (16:20)
[2022-04-01] MEDS ORDERED: MEDROL DOSEPAK 24 MG PO (16:22)
== END 2022-04-01 17:44 | disposition home or self-care (01) ==
LOC: ER1 09:32 → CDU 16:07 → MED SURG 4 16:07 → CDU 16:07 → MED SURG 4 17:49
PROVIDERS: Emergency Medicine; Physician Assistant; ADMIT Internal Medicine
DX: R07.89 Other chest pain (principal); I11.0 Hypertensive heart disease with heart failure; I50.23 Acute on chronic systolic (congestive) heart failure; D72.829 Elevated white blood cell count, unspecified; E83.42 Hypomagnesemia; J44.9 Chronic obstructive pulmonary disease, unspecified; J84.10 Pulmonary fibrosis, unspecified; J96.11 Chronic respiratory failure with hypoxia; I25.10 Atherosclerotic heart disease of native coronary artery without angina pectoris; I42.0 Dilated cardiomyopathy; N17.9 Acute kidney failure, unspecified; N13.2 Hydronephrosis with renal and ureteral calculous obstruction; E11.9 Type 2 diabetes mellitus without complications; E78.5 Hyperlipidemia, unspecified; F17.210 Nicotine dependence, cigarettes, uncomplicated; K80.20 Calculus of gallbladder without cholecystitis without obstruction; I25.2 Old myocardial infarction; I08.1 Rheumatic disorders of both mitral and tricuspid valves; Z91.14 Patient's other noncompliance with medication regimen; Z91.19 Patient's noncompliance with other medical treatment and regimen; Z95.5 Presence of coronary angioplasty implant and graft; Z95.810 Presence of automatic (implantable) cardiac defibrillator; Z79.82 Long term (current) use of aspirin; Z79.84 Long term (current) use of oral hypoglycemic drugs; Z79.899 Other long term (current) drug therapy; Z86.79 Personal history of other diseases of the circulatory system; Z86.73 Personal history of transient ischemic attack (TIA), and cerebral infarction without residual deficits; Z98.890 Other specified postprocedural states
CPT/HCPCS: 36415; 71045; 80048; 80053; 81001; 82550; 82553; 82962; 83036; 83605; 83690; 83735; 83880; 84484; 85025; 87040; 87086; 93005; 94640; 94664; 94760; 96374; 96375; 96376; 99285; G0378; J0696; J1100; J1885; J1940; J2920; J3370; J7070; Q9967

== ENCOUNTER 2022-06-05 17:24 | Inpatient (IN) | payer MEDICARE, OTHER ==
[~2022-06-05] VITALS: Ht 154.9 cm; Wt 59.9 kg
[~2022-06-05 17:24] MED LIST changes: +FLOMAX 0.4 MG0.4 MG PO; +MUPIROCIN22 GM TOP; +POTASSIUM CHLO10 ME2 PO; +SPIRIVA RESPIMAT INH
[2022-06-05 17:57] LABS: HEMOGLOBIN 15.9 gm/dl (14.0-17.5); RED BLOOD COUNT 6.57 M/UL (4.20-5.50); WHITE BLOOD COUNT 17.6 K/UL (4.5-11.0)
[2022-06-05 18:15] LABS: BUN/CREATININE RATIO 5 (0-10)
[2022-06-06 03:18] LABS: HEMOGLOBIN 14.4 gm/dl (14.0-17.5); RED BLOOD COUNT 5.97 M/UL (4.20-5.50); WHITE BLOOD COUNT 15.4 K/UL (4.5-11.0)
[2022-06-06 03:24] LABS: BUN/CREATININE RATIO 8 (0-10)
[2022-06-06] MEDS ORDERED: PROAIR HFA8.5 GM INH (12:22)
[2022-06-06] MEDS ORDERED: DIAZEPAM10 MG PO (12:23)
[2022-06-06] MEDS ORDERED: FLOMAX 0.4 MG0.4 MG PO (12:23)
[2022-06-06] MEDS ORDERED: ASPIRIN EC81 MG PO (12:24)
[2022-06-06] MEDS ORDERED: ACETAMINOPHEN-1 EAC1 PO (12:24)
[2022-06-06] MEDS ORDERED: SYMBICORT 16010.2 GM INH (12:26)
[2022-06-06] MEDS ORDERED: FUROSEMIDE40 MG PO (12:27)
[2022-06-06] MEDS ORDERED: LISINOPRIL2.5 MG PO (12:28)
[2022-06-06] MEDS ORDERED: SPIRIVA RESPIMAT4 GM INH (12:29)
[2022-06-07 03:02] LABS: HEMOGLOBIN 13.8 gm/dl (14.0-17.5); RED BLOOD COUNT 5.83 M/UL (4.20-5.50)
[2022-06-07 03:19] LABS: BUN/CREATININE RATIO 16 (0-10)
[2022-06-07 03:57] LABS: WHITE BLOOD COUNT 24.6 K/UL (4.5-11.0)
[2022-06-08 03:45] LABS: RED BLOOD COUNT 5.88 M/UL (4.20-5.50)
[2022-06-08 03:57] LABS: BUN/CREATININE RATIO 20 (0-10)
[2022-06-09 02:55] LABS: HEMOGLOBIN 15.2 gm/dl (14.0-17.5); RED BLOOD COUNT 6.35 M/UL (4.20-5.50); WHITE BLOOD COUNT 19.6 K/UL (4.5-11.0)
[2022-06-09 03:21] LABS: BUN/CREATININE RATIO 25 (0-10)
[2022-06-10 03:20] LABS: HEMOGLOBIN 15.2 gm/dl (14.0-17.5); RED BLOOD COUNT 6.37 M/UL (4.20-5.50); WHITE BLOOD COUNT 21.1 K/UL (4.5-11.0)
[2022-06-10 04:24] LABS: BUN/CREATININE RATIO 32 (0-10)
[2022-06-10 15:35] LABS: BUN/CREATININE RATIO 32 (0-10)
[2022-06-10] MEDS ORDERED: AMOX TR-K CLV1 EAC4 PO (16:14)
[2022-06-10] MEDS ORDERED: PREDNISONE20 MG PO (16:14)
== END 2022-06-10 16:52 | disposition home or self-care (01) | DRG 177 ==
LOC: ER1 17:24 → M/S 22:06 → CDU 22:06 → M/S 23:02
PROVIDERS: Internal Medicine; Internal Medicine Infectious Disease; Student in an Organized Health Care Education/Training Program; ADMIT Internal Medicine
DX: J69.0 Pneumonitis due to inhalation of food and vomit (principal); I50.23 Acute on chronic systolic (congestive) heart failure; Z20.822 Contact with and (suspected) exposure to COVID-19; J96.21 Acute and chronic respiratory failure with hypoxia; J44.1 Chronic obstructive pulmonary disease with (acute) exacerbation; F17.210 Nicotine dependence, cigarettes, uncomplicated; T38.0X5A Adverse effect of glucocorticoids and synthetic analogues, initial encounter; E11.9 Type 2 diabetes mellitus without complications; D75.839 Thrombocytosis, unspecified; E87.5 Hyperkalemia; E78.5 Hyperlipidemia, unspecified; Z91.14 Patient's other noncompliance with medication regimen; Z79.01 Long term (current) use of anticoagulants; Z79.82 Long term (current) use of aspirin; Z99.81 Dependence on supplemental oxygen; Z86.73 Personal history of transient ischemic attack (TIA), and cerebral infarction without residual deficits; Z87.442 Personal history of urinary calculi; Z90.49 Acquired absence of other specified parts of digestive tract; Z82.5 Family history of asthma and other chronic lower respiratory diseases; I25.2 Old myocardial infarction; Z95.810 Presence of automatic (implantable) cardiac defibrillator; Z71.6 Tobacco abuse counseling
CPT/HCPCS: 36415; 36600; 71045; 71046; 80048; 80053; 81001; 82550; 82553; 82803; 82962; 83605; 83880; 84484; 85025; 85610; 85730; 86140; 93005; 94640; 94664; 94760; 94762; 96374; 96375; 99285; J0696; J1100; J1335; J1650; J1940; J2185; J2270; J2920; J3370; J3475; J7070; Q9967; U0002